=== PATIENT | male | born 1990 | race Two or more races ===

== ENCOUNTER 2016-12-27 14:53 | Emergency (ER) | payer OTHER ==
[~2016-12-27] VITALS: Ht 170.2 cm; Wt 70.3 kg
[2016-12-27 15:21] VITALS: BP 149/69
[2016-12-27] MEDS ORDERED: SILVER SULFADIAZINE 1 % TOPICAL CREAM 50GM TOP ONE (16:30)
[2016-12-27] MEDS ORDERED: TETANUS-DIPTH-ACEL PERTUSSIS 0.5ML SYRG IM ONE (16:30)
== END 2016-12-27 16:36 | disposition home or self-care (01) ==
LOC: ER 15:04
DX: T24.611A Corrosion of second degree of right thigh, initial encounter (principal); T65.91XA Toxic effect of unspecified substance, accidental (unintentional), initial encounter; Y93.89 Activity, other specified; Y99.8 Other external cause status; Y92.69 Other specified industrial and construction area as the place of occurrence of the external cause
CPT/HCPCS: 16000; 90715; 94761